=== PATIENT | female | born 1940 | race Caucasian/White ===

== ENCOUNTER → 2018-07-15 | Outpatient (CLI) | payer MEDICARE ==
[~2018-07-15] MED LIST: ACETAMINOPHEN 325 MG TAB As Ordered ONE; CLOPIDOGREL 75 MG TAB As Ordered ONE; HEPARIN 1,000 UNITS/ML 10ML VIAL (FOR RADIOLOGY& DIALYSIS ONLY) As Ordered ONE; ISOVUE-300 61% 50ML VIAL (Q9967) As Ordered ONE; LIDOCAINE 2% MDV 20 ML VIAL As Ordered ONE; MIDAZOLAM INJ 2 MG/2 ML VIAL (J2250) As Ordered ONE; PROTAMINE SULF INJ 50 MG/5 ML VIAL (J2720) As Ordered ONE; fentaNYL 100 MCG/2 ML INJECTION (J3010) As Ordered ONE
[2018-07-15 08:36] LABS: HEMATOCRIT 41.5 % (36.0-47.0); HEMOGLOBIN 13.7 g/dl (12.0-15.5); MEAN CORPUSCULAR HEMOGLOBIN 31.2 pg (27.0-33.0); MEAN CORPUSCULAR VOLUME 94.5 fl (80.0-96.0); PLATELET COUNT, AUTOMATED 352 10^3/uL (150-450); RED BLOOD COUNT 4.39 10^6/uL (4.00-5.40); WHITE BLOOD COUNT 11.3 10^3/uL (4.0-10.0)
[2018-07-15 08:57] LABS: BLOOD UREA NITROGEN 17 MG/DL (7-18); CALCIUM LEVEL 9.2 MG/DL (8.8-10.2); CARBON DIOXIDE LEVEL 28 MEQ/L (21-32); CHLORIDE LEVEL 105 MEQ/L (98-107); CREATININE FOR GFR 0.96 MG/DL (0.55-1.30); GLOMERULAR FILTRATION RATE > 60.0 (>39); GLUCOSE, FASTING 89 MG/DL (70-100); POTASSIUM SERUM 4.9 MEQ/L (3.5-5.1); SODIUM LEVEL 138 MEQ/L (136-145)
--- NOTE | 2018-08-03 11:26 | REPIR ---
DATE OF PROCEDURE: 07/15/2018 ATTENDING SURGEON: Manny Ash MD ASSISTANTS: Cha Couch and Mercedes Castañeda PREOPERATIVE DIAGNOSIS: Bilateral lower extremity claudication. POSTOPERATIVE DIAGNOSIS: Bilateral lower extremity claudication. PROCEDURES: Aortogram, iliofemoral angiogram, selective left common femoral artery catheter placement, left lower extremity angiogram, left popliteal artery angioplasty with 5 x 200 mm balloon, left superficial femoral artery angioplasty and stent with 6 x 120 mm Barbara drug-eluting stent times two postdilated with 6 x 200 balloon, left common femoral artery angioplasty with 6 x 200 balloon, Mynx closure of the right common femoral arteriotomy. 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 The patient has more significant symptoms in her left lower extremity and will undergo a left lower extremity angiogram with possible angioplasty, stent, and/or atherectomy. Risks, benefits, and alternative treatment options were discussed with the patient. ANESTHESIA: Local with sedation 1 mg of Versed, 50 mcg of fentanyl, and 10 mL of 2% lidocaine. SEDATION TIME: Was from 10:11 a.m. to 11:03 a.m. for a total of 52 minutes. FLUORO TIME: 6.7 minutes. CONTRAST: 15.5 mL of Isovue-300. HEPARIN: 6000 units. PROTAMINE: 50 mg. COMPLICATIONS: None. DRAINS: None. SPECIMENS: None. IMPLANTS: 6 x 120 Barbara drug-eluting stents in the superficial femoral and popliteal arteries times two. DESCRIPTION OF PROCEDURE: The patient was taken to the angiography suite, placed supine on the angiography table, and then prepped and draped in a standard surgical fashion. The right common femoral artery was cannulated with a micropuncture needle after anesthetizing the overlying skin with 2% lidocaine. A micropuncture wire was advanced through the micropuncture needle which was upsized to a micropuncture sheath. A Bentson wire was advanced through the micropuncture sheath which was upsized to a 5-Romanian sheath. An Omni Flush catheter was placed in the aorta, and an aortogram was performed. Catheter was pulled down to the level of bifurcation iliac arteries, and an iliofemoral angiogram was performed. Catheter was directed over the bifurcation iliac arteries, placed in the left common femoral artery, and a left lower extremity angiogram was performed. This showed severe diffuse disease along the course of the left common femoral, superficial femoral, and popliteal arteries with complete occlusion of the left distal superficial femoral and proximal popliteal artery. This area was recannulized, after which the left popliteal artery was angioplastied with a 5 x 200 balloon. The left popliteal artery proximally was then stented with a 6 x 120 mm Barbara drug-eluting stent, postdilated with a 6 x 200 balloon. The superficial femoral artery was angioplastied and stented with a 6 x 120 mm Barbara drug-eluting stent, and postdilated with a 6 x 20 balloon. The remainder of the superficial femoral and common femoral artery were angioplasty with a 6 x 200 balloon. A completion angiogram showed resolution of the stenosis with excellent flow into the tibial vessels distally. A Mynx closure device was used to close the arteriotomy in the right common femoral artery with an additional 10 minutes of adjunctive pressure applied for hemostasis. Dressings were then applied. The patient tolerated the procedure well. All instrument, sponge, and needle counts were correct at the end of the case. There were no complications. Dr. Ash was present for and directed the entire case. The patient was transferred to the holding area and subsequently discharged in stable condition.
== END | disposition home or self-care (01) ==
LOC: M IRPRO 08:03
PROVIDERS: ATTEND Surgery Vascular Surgery
DX: I70.213 Atherosclerosis of native arteries of extremities with intermittent claudication, bilateral legs (principal); I70.92 Chronic total occlusion of artery of the extremities
CPT/HCPCS: 37226; 80048; 85027; C1725; C1760; C1769; C1874; C1887; C1894; J2250; J2720; J3010; Q9967

== ENCOUNTER → 2018-08-12 | Outpatient (CLI) | payer MEDICARE ==
[~2018-08-12] MED LIST changes: -ACETAMINOPHEN 325 MG TAB As Ordered ONE; +CLOP75TA2; -CLOPIDOGREL 75 MG TAB As Ordered ONE; +LISI-542; -PROTAMINE SULF INJ 50 MG/5 ML VIAL (J2720) As Ordered ONE; +TYLE325T5 PO; +VENTAER
--- NOTE | 2018-09-07 08:28 | REPIR ---
DATE OF PROCEDURE: 08/12/2018 ATTENDING SURGEON: Dr. Manny Ash ASSISTANTS: Sariah Dempsey and Cha Couch. PREOPERATIVE DIAGNOSES: Right lower extremity claudication, left lower extremity claudication, status post left lower extremity angiogram with angioplasty and stent of the superficial femoral artery. POSTOPERATIVE DIAGNOSES: Right lower extremity claudication, left lower extremity claudication, status post left lower extremity angiogram with angioplasty and stent of the superficial femoral artery. PROCEDURE: Left common femoral arterial puncture, selective right common femoral artery catheter placement with right lower extremity angiogram, selective right superficial femoral artery catheter placement with right lower extremity angiogram, selective right popliteal artery catheter placement with right lower extremity angiogram, right superficial femoral artery angioplasty and stent with a 6 x 120 Barbara drug-eluting stent postdilated with 5 x 200 mm balloon, right popliteal artery angioplasty and stent with a 6 x 200 Barbara drug-eluting stent postdilated with a 5 x 200 mm balloon, right common femoral artery angioplasty with 5 x 200 mm balloon, Mynx closure of the left common femoral arteriotomy. INDICATIONS: The patient is a 78-year-old female with significant tobacco history and of bilateral lower extremity atherosclerotic occlusive disease, who has already undergone angioplasty and stenting of her left lower extremity with significant improvement and now will undergo a right lower extremity angiogram with possible angioplasty and stent. Risks, benefits and alternative treatment options were discussed with the patient. ANESTHESIA: Was local with sedation 1 mg of Versed, 50 mcg of fentanyl and 10 mL of 2% lidocaine. FLUOROSCOPY TIME: 4.2 minutes. HEPARIN: 6000 units. CONTRAST: 2000 mL. SEDATION TIME: Was from 9:24 a.m. to 10:26 a.m. for a total of 62 minutes. The sedation and cardiopulmonary monitoring were performed under my direct supervision. I was present for and directed the entire case. DESCRIPTION OF PROCEDURE: The patient was taken to the angiography suite, placed supine on the angiography room table and the left common femoral artery was cannulated with a micropuncture needle. The catheter was advanced up and over the bifurcation and placed in the right common femoral artery and a right lower extremity an angiogram was performed. The catheter was advanced through the stenosis in the right superficial femoral artery, placed in the distal right superficial femoral artery and an angiogram was performed. The catheter was advanced through the stenosis in the proximal popliteal artery, placed in the distal popliteal artery and a right lower extremity angiogram was performed. The right superficial femoral artery underwent angioplasty and stenting with a 6 x 120 mm Barbara drug-eluting stent. The right popliteal artery underwent angioplasty and stenting with a 6 x 120 mm Barbara drug-eluting stent. Both stents were postdilated with 5 x 200 mm balloon. The right common femoral artery was angioplastied with a s5 x 200 mm balloon. Completion angiography showed resolution of the stenosis with excellent flow through the right common femoral artery, superficial femoral artery and popliteal artery with good tibial vessel runoff into the foot. Mynx closure device was used close the arteriotomy in the left common femoral artery with an additional 10 minutes of adjunctive pressure applied for hemostasis. Dressings were then applied. The patient tolerated the procedure well. All instrument, sponge, needle counts were correct at the end the case. There were no complications. Dr. Ash was present for and directed the entire case. The patient was transferred to the holding area and subsequently discharged in stable condition. RADIOLOGIC SUPERVISION INTERPRETATION: The initial angiogram showed the stenosis in the right superficial femoral artery in multiple areas as well as the distal superficial femoral and proximal popliteal arteries. These areas underwent angioplasty and stenting with two stents and were postdilated with 5 x 200 balloon. There was stenosis also in the superficial femoral common femoral junction, which was angioplastied with a 5 x 200 balloon. A completion angiogram showed resolution of the stenosis with good flow into the tibial vessels. The Mynx closure device was used to close the arteriotomy in the left common femoral artery.
== END | disposition home or self-care (01) ==
LOC: EDBD → M IRPRO 07:54
PROVIDERS: ATTEND Surgery Vascular Surgery
DX: I70.211 Atherosclerosis of native arteries of extremities with intermittent claudication, right leg (principal)
CPT/HCPCS: 37226; 75710; 75774; 99152; 99153; C1725; C1760; C1769; C1874; C1887; C1894; J2250; J3010; Q9967

== ENCOUNTER 2018-08-13 19:28 | Emergency (ER) | payer MEDICARE ==
[~2018-08-13] VITALS: Ht 154.9 cm; Wt 40.9 kg
[2018-08-13] MEDS ORDERED: CLOP75TA2 (19:49)
[2018-08-13] MEDS ORDERED: LISI-542 (19:49)
[2018-08-13] MEDS ORDERED: VENTAER (19:49)
[2018-08-13] MEDS ORDERED: TYLE325T5 PO (19:51)
[2018-08-13] MEDS ORDERED: NS 1,000 ML IV SCH (20:28)
[2018-08-13] MEDS ORDERED: ONDANSETRON 4MG/2ML VIAL (J2405) IV ONE (20:30)
[2018-08-13 20:36] LABS: BASO % 0.2 % (0.0-1.0); HEMATOCRIT 39.6 % (36.0-47.0); HEMOGLOBIN 13.2 g/dl (12.0-15.5); LYMPH # 0.6 10^3/uL (1.5-4.5); LYMPH % 5.1 % (24.0-44.0); MEAN CORPUSCULAR HEMOGLOBIN 30.8 pg (27.0-33.0); MEAN CORPUSCULAR HGB CONC 33.3 g/dl (32.0-36.5); MEAN CORPUSCULAR VOLUME 92.5 fl (80.0-96.0); MONO # 0.4 10^3/uL (0.0-0.8); MONO % 3.2 % (0.0-5.0); NEUTROPHILS # 11.3 10^3/uL (1.8-7.7); NEUTROPHILS % 91.1 % (36.0-66.0); PLATELET COUNT, AUTOMATED 315 10^3/uL (150-450); RED BLOOD COUNT 4.28 10^6/uL (4.00-5.40); WHITE BLOOD COUNT 12.4 10^3/uL (4.0-10.0)
[2018-08-13 20:45] VITALS: BP 129/72
[2018-08-13 20:47] LABS: ACETAMINOPHEN LEVEL < 2.0 UG/ML (10.0-30.0); ALBUMIN 3.2 GM/DL (3.2-5.2); ALT/SGPT 14 U/L (12-78); BILIRUBIN,DIRECT 0.1 MG/DL (0.0-0.2); BILIRUBIN,TOTAL 0.5 MG/DL (0.2-1.0); BLOOD UREA NITROGEN 19 MG/DL (7-18); CALCIUM LEVEL 8.4 MG/DL (8.8-10.2); CARBON DIOXIDE LEVEL 24 MEQ/L (21-32); CHLORIDE LEVEL 103 MEQ/L (98-107); CREATININE FOR GFR 1.11 MG/DL (0.55-1.30); GLOMERULAR FILTRATION RATE 50.9 (>39); GLUCOSE, FASTING 126 MG/DL (70-100); LIPASE 107 U/L (73-393); POTASSIUM SERUM 4.2 MEQ/L (3.5-5.1); SODIUM LEVEL 135 MEQ/L (136-145); TOTAL PROTEIN 6.9 GM/DL (6.4-8.2)
[2018-08-13] MEDS ORDERED: ACETAMINOPHEN TAB 650MG DOSE (2X325MG) PO ONE (21:30)
== END 2018-08-13 21:45 | disposition home or self-care (01) ==
LOC: EDBD 19:28 → M ED 19:28
DX: R11.2 Nausea with vomiting, unspecified (principal); I10 Essential (primary) hypertension; Z79.01 Long term (current) use of anticoagulants; Z79.899 Other long term (current) drug therapy; Z88.8 Allergy status to other drugs, medicaments and biological substances; Z88.0 Allergy status to penicillin
CPT/HCPCS: 80048; 80076; 83690; 85025; 93041; 96365; 99284; G0480

== ENCOUNTER → 2018-09-28 | Outpatient (CLI) | payer MEDICARE ==
[~2018-09-28] MED LIST changes: -HEPARIN 1,000 UNITS/ML 10ML VIAL (FOR RADIOLOGY& DIALYSIS ONLY) As Ordered ONE; -ISOVUE-300 61% 50ML VIAL (Q9967) As Ordered ONE; -LIDOCAINE 2% MDV 20 ML VIAL As Ordered ONE; -MIDAZOLAM INJ 2 MG/2 ML VIAL (J2250) As Ordered ONE; -fentaNYL 100 MCG/2 ML INJECTION (J3010) As Ordered ONE
--- NOTE | 2018-09-28 16:04 | REP ---
BILATERAL LOWER EXTREMITY DUPLEX DOPPLER ARTERIAL ULTRASOUND: Real-time ultrasound evaluation and duplex Doppler interrogation of bilateral lower arterial systems is performed. There are bilateral superficial femoral artery stents. These are patent without significant stenosis. Scattered calcified and noncalcified plaquing is seen in the other chicken ranch vessels bilaterally. There are diffuse triphasic and biphasic wave forms seen in all vessels bilaterally. There is increased peak systolic velocity in the right popliteal arteries suggesting some degree of stenosis at that location. BECK right is 1.1 and left 1.0. RIGHT LEFT Common femoral artery 164 cm/s 118 cm/s Profunda 93.6 cm/s 86 cm/s Proximal SFA 77.2 cm/s 110 cm/s Mid SFA 45.9 cm/s 42.8 cm/s Distal SFA 50.5 cm/s 47.8 cm/s Popliteal 121 cm/s 59.3 cm/s Proximal KHUSHBOO 52.3 cm/s 58.3 cm/s Tibioperoneal trunk 61.1 cm/s 56.1 cm/s Proximal PRODUCT SUPPORT SALES REPRESENTATIVE 56.4 cm/s 59.9 cm/s Distal PRODUCT SUPPORT SALES REPRESENTATIVE 11.3 cm/s 48.7 cm/s Distal KHUSHBOO 9.8 cm/s 11.2 cm/s IMPRESSION: Bilateral superficial femoral artery stents without definite stenosis, patent flow is seen within both stents. There are findings suggesting stenosis of the right popliteal artery. Electronically Signed by Vinicio Saeed MD 09/29/2018 11:03 A
== END ==
LOC: M RAD 13:28
PROVIDERS: ATTEND Surgery Vascular Surgery
DX: I70.213 Atherosclerosis of native arteries of extremities with intermittent claudication, bilateral legs (principal)

== ENCOUNTER → 2018-12-23 | Outpatient (CLI) | payer MEDICARE ==
--- NOTE | 2018-12-23 14:25 | REP ---
Bilateral lower extremity arterial Doppler ultrasound: History: Atherosclerosis. Intermittent claudication. Findings: The ankle brachial index could not be calculated on the right as the patient was unable to calculate the blood pressure cuff on the this leg. Ankle brachial index on the left is 1.0. The right [place] superficial femoral artery is occluded. The distal superficial femoral artery is recannulated by collaterals with decreased velocities from the popliteal to the ankle. There is a stent in the distal superficial femoral artery appears occluded. On On the left there is a distal superficial femoral artery stent which appears patent. Moderate plaquing is seen in the distal posterior tibial and anterior tibial arteries on the left. There is reverse flow in the posterior tibial artery distally on the left. Velocity chart right lower extremity arteries: CF A 107 cm/S Profunda 113 Proximal SFA occluded Mid SFA stent occluded Distal SFA post stent 150 cm/S Popliteal 38 Proximal AT A 21 Tibioperoneal trunk 31 Proximal INFORMATION TECHNOLOGY OFFICER 34 Distal INFORMATION TECHNOLOGY OFFICER 7.5 Distal AT A 14 Velocity chart left lower extremity arteries: CF A 118 cm/S Profunda 79 Pre stent proximal SFA 81 Mid SFA 39 Poststent distal SFA 73 Popliteal 41 Proximal AT A 29 Tibioperoneal trunk 43 Proximal INFORMATION TECHNOLOGY OFFICER 22 Distal INFORMATION TECHNOLOGY OFFICER reversed 10 Distal AT A 44 Electronically Signed by Enoc Becker MD 12/23/2018 02:16 P
== END ==
LOC: M RAD 12:36
PROVIDERS: ATTEND Physician Assistant
DX: I70.213 Atherosclerosis of native arteries of extremities with intermittent claudication, bilateral legs (principal)

== ENCOUNTER → 2019-02-01 | Outpatient (CLI) | payer MEDICARE ==
[~2019-02-01] MED LIST changes: +BUPIVACAINE HCL 0.5% 10 ML VIAL As Ordered ONE; +DOXY100C37 PO; +GLYCCAP PO; +HEPARIN 1,000 UNITS/ML 10ML VIAL (FOR RADIOLOGY& DIALYSIS ONLY) As Ordered ONE; +ISOVUE-300 61% 50ML VIAL (Q9967) As Ordered ONE; +LIDOCAINE 2% MDV 20 ML VIAL As Ordered ONE; -LISI-542; +LISI-542 PO; +MIDAZOLAM INJ 2 MG/2 ML VIAL (J2250) As Ordered ONE; +PROTAMINE SULF INJ 50 MG/5 ML VIAL (J2720) As Ordered ONE; +diphenhydrAMINE INJ 50MG/ML VIAL (J1200) As Ordered ONE; +fentaNYL 100 MCG/2 ML INJECTION (J3010) As Ordered ONE
[2019-02-01 15:30] VITALS: BP 176/81
--- NOTE | 2019-02-08 06:44 | REPIR ---
DATE OF PROCEDURE: 02/01/2019 ATTENDING SURGEON: Dr. Manny Ash STUDENT TEACHER: Mercedes Castañeda and Cha Couch PREOPERATIVE DIAGNOSIS: Right lower extremity claudication status post right lower extremity angioplasty and stenting. POSTOPERATIVE DIAGNOSIS: Right lower extremity claudication, status post right lower extremity angioplasty and stenting. PROCEDURE: Left common femoral arterial cannulation, selective right common femoral artery catheter placement, right lower extremity angiogram, exposure of the left common femoral arteriotomy. INDICATIONS: The patient is a 78-year-old female with previous angioplasty and stenting of the right superficial femoral and popliteal arteries due to severe atherosclerotic arterial occlusive disease who now has recurrent claudication in the right lower extremity. The patient will undergo an angiogram with possible angioplasty stent atherectomy, thrombolysis and/or thrombectomy. ANESTHESIA: Local sedation with 1 mg of Versed, 50 mcg of fentanyl and 20 mL of 2% lidocaine mixed with 0.5% Marcaine. FLUORO TIME: 0.5 minutes. CONTRAST: 2 mL of Isovue-300. SEDATION TIME: From 11:45 a.m. to 12:07 p.m. for a total of 22 minutes. COMPLICATIONS: None. DRAINS: None. SPECIMENS: None. IMPLANTS: None. PROCEDURE: The patient was taken to the angiography suite, placed supine on the angiography room table and then prepped and draped in a standard surgical fashion. The left common femoral artery was then cannulated after which a catheter was brought up and over the bifurcation and placed in the right common femoral artery and a right lower extremity angiogram was performed showing complete occlusion of the superficial femoral and popliteal artery stents with reconstitution of the below-knee popliteal artery. The catheters and wires were removed. A MYNX closure device was used to close the arteriotomy in the left common femoral artery with an additional 10 minutes of adjunctive pressure applied for hemostasis. Dressings were then applied. The patient tolerated the procedure well. All instrument, sponge and needle counts were correct at the end the case. There were no complications. Dr. Ash was present for and directed the entire case. The patient was transferred to the holding area and subsequently discharged in stable condition.
== END ==
LOC: M IRPRO 09:24
PROVIDERS: ATTEND Surgery Vascular Surgery
DX: T82.858A Stenosis of other vascular prosthetic devices, implants and grafts, initial encounter (principal); I70.211 Atherosclerosis of native arteries of extremities with intermittent claudication, right leg; X58.XXXA Exposure to other specified factors, initial encounter; Y93.9 Activity, unspecified; Y92.9 Unspecified place or not applicable; Y99.9 Unspecified external cause status
CPT/HCPCS: 36246; 75710; 99152; 99153; C1760; C1769; C1887; C1894; G0269; J1200; J2250; J3010; Q9967

== ENCOUNTER 2019-02-04 17:49 | Emergency (ER) | payer MEDICARE ==
[~2019-02-04] VITALS: Ht 152.4 cm; Wt 39.5 kg
[~2019-02-04 17:49] MED LIST changes: -BUPIVACAINE HCL 0.5% 10 ML VIAL As Ordered ONE; -DOXY100C37 PO; -HEPARIN 1,000 UNITS/ML 10ML VIAL (FOR RADIOLOGY& DIALYSIS ONLY) As Ordered ONE; -ISOVUE-300 61% 50ML VIAL (Q9967) As Ordered ONE; -LIDOCAINE 2% MDV 20 ML VIAL As Ordered ONE; -MIDAZOLAM INJ 2 MG/2 ML VIAL (J2250) As Ordered ONE; -PROTAMINE SULF INJ 50 MG/5 ML VIAL (J2720) As Ordered ONE; -diphenhydrAMINE INJ 50MG/ML VIAL (J1200) As Ordered ONE; -fentaNYL 100 MCG/2 ML INJECTION (J3010) As Ordered ONE
[2019-02-04 18:42] VITALS: BP 160/82
[2019-02-04] MEDS ORDERED: DOXY100C37 PO (18:44)
== END 2019-02-04 18:57 | disposition home or self-care (01) ==
LOC: M ED 17:49
DX: L02.214 Cutaneous abscess of groin (principal); T83.518A Infection and inflammatory reaction due to other urinary catheter, initial encounter; X58.XXXA Exposure to other specified factors, initial encounter; Y92.89 Other specified places as the place of occurrence of the external cause; I12.9 Hypertensive chronic kidney disease with stage 1 through stage 4 chronic kidney disease, or unspecified chronic kidney disease; J44.9 Chronic obstructive pulmonary disease, unspecified; N18.3 Chronic kidney disease, stage 3 (moderate); K21.9 Gastro-esophageal reflux disease without esophagitis; E78.00 Pure hypercholesterolemia, unspecified; F41.9 Anxiety disorder, unspecified; Z79.899 Other long term (current) drug therapy; Z79.01 Long term (current) use of anticoagulants; Z88.0 Allergy status to penicillin; Z88.8 Allergy status to other drugs, medicaments and biological substances; F17.210 Nicotine dependence, cigarettes, uncomplicated

== ENCOUNTER → 2019-02-21 | Outpatient (CLI) | payer MEDICARE ==
[~2019-02-21] MED LIST changes: +DOXY100C37 PO
--- NOTE | 2019-02-22 08:29 | REP ---
Bilateral lower extremity venous mapping: Greater saphenous vein: origin: right 4.0 mm, left 3.6 mm. mid thigh: right 2.2 mm, left 2.6 mm. at the knee: right 2.1 mm, left 2.5 mm. below knee: right 2.3 mm, left 2.3 mm. midcalf: right 2.3 ml, left 2.3 mm. distal calf: right 1.9 ml, left 2.4 mm. Lesser saphenous vein: Distal thigh: Right 2.0 mm, left 2.7 mm. Posterior knee: Right 2.2 mm, left 2.3 mm. Proximal calf: Right 1.8 mm, left 2.1 mm. Midcalf: Right 1.9 mm, left 2.3 mm. Distal calf: Right 1.9 mm, left 2.6 mm. Bilateral lower extremity deep vein duplex ultrasound for thrombus: The deep veins demonstrate normal compression, normal Doppler color flow and normal Doppler waveforms with respiration and augmentation from the popliteal veins to the common femoral veins bilaterally . Impression: There is no deep vein thrombus in the right or left lower extremities . Electronically Signed by Vinicio Segura MD 02/22/2019 08:20 A
== END ==
LOC: M RAD 13:07
PROVIDERS: ATTEND Physician Assistant
DX: Z01.818 Encounter for other preprocedural examination (principal); I70.213 Atherosclerosis of native arteries of extremities with intermittent claudication, bilateral legs

== ENCOUNTER → 2020-01-23 | Outpatient (CLI) | payer MEDICARE, MEDICAID ==
--- NOTE | 2020-02-28 09:27 | REP ---
BILATERAL LOWER EXTREMITY ARTERIAL DOPPLER ULTRASOUND HISTORY: Claudication. FINDINGS: [id number] plaquing is seen throughout and bilaterally. Monophasic waveforms are noted extensively in the lower extremities bilaterally. A right superficial femoral artery stent is seen with occlusion. Distal to the stent, there is revascularization. The right posterior tibial artery is occluded. A stent is seen in the left proximal superficial femoral artery distally and is occluded. Two areas of revascularization are seen just distal to the stent. The left posterior tibial artery is occluded. Ankle brachial indices could not be accomplished due to patient tolerance. BILATERAL LOWER EXTREMITY ARTERIAL DOPPLER VELOCITY PSV RIGHT (cm/s) PSV LEFT (cm/s) SHOCK ABSORBER INSTALLER 142 141 Profunda 184 95 Proximal SFA Occluded Occluded Mid-SFA Occluded Occluded Distal SFA Post-stent 77 Post-stent 124 Popliteal 37 26 Proximal KHUSBHOO 31 33 Tibioperoneal trunk 36 31 Proximal TELEPHONE INTERVIEWER 34 12 Distal TELEPHONE INTERVIEWER Occluded Occluded Distal KHUSHBOO 11 26 MTDD
== END ==
LOC: M RAD 13:00
PROVIDERS: ATTEND Physician Assistant
DX: I70.213 Atherosclerosis of native arteries of extremities with intermittent claudication, bilateral legs (principal)

== ENCOUNTER → 2022-07-20 | Outpatient (CLI) | payer MEDICARE, MEDICAID ==
[~2022-07-20] MED LIST changes: +ACET-683 PO; +AMLO1TAB24 PO; +B-12100010 PO; -CLOP75TA2; +CLOP75TA2 PO; +DOXY-443 PO; -DOXY100C37 PO; +FLOV50AE PO; +IPRA0.00 INH; -LISI-542 PO; +LISI5TAB11 PO; -VENTAER; +VENTAER INH
== END ==
LOC: M PLARAD 15:22
PROVIDERS: ATTEND Student in an Organized Health Care Education/Training Program
DX: R91.8 Other nonspecific abnormal finding of lung field (principal)
CPT/HCPCS: 78815; A9552

== ENCOUNTER 2022-07-24 12:45 | Inpatient (IN) | payer MEDICARE, MEDICAID ==
[~2022-07-24] VITALS: Ht 154.9 cm; Wt 42.5 kg
[~2022-07-24 12:45] MED LIST changes: -ACET-683 PO; -AMLO1TAB24 PO; -B-12100010 PO; -FLOV50AE PO; -IPRA0.00 INH
[2022-07-24] MEDS ORDERED: IPRA0.00 INH (12:56)
[2022-07-24] MEDS ORDERED: FLOV50AE PO (12:56)
[2022-07-24] MEDS ORDERED: AMLO1TAB24 PO (12:56)
[2022-07-24] MEDS ORDERED: NS 1,000 ML IV ONE (13:10)
[2022-07-24] MEDS ORDERED: PANTOPRAZOLE 40MG VIAL IV ONE (13:10)
[2022-07-24 13:56] LABS: BASO % 0.4 % (0.0-1.0); HEMATOCRIT 48.4 % (36.0-47.0); HEMOGLOBIN 15.5 g/dl (12.0-15.5); LYMPH # 0.7 10^3/uL (1.5-5.0); LYMPH % 8.7 % (24.0-44.0); MEAN CORPUSCULAR HEMOGLOBIN 29.1 pg (27.0-33.0); MEAN CORPUSCULAR VOLUME 90.8 fl (80.0-96.0); MONO # 0.7 10^3/uL (0.0-0.8); MONO % 7.9 % (2.0-8.0); NEUTROPHILS % 82.6 % (36.0-66.0); PLATELET COUNT, AUTOMATED 273 10^3/uL (150-450); RED BLOOD COUNT 5.33 10^6/uL (4.00-5.40); WHITE BLOOD COUNT 8.4 10^3/uL (4.0-10.0)
[2022-07-24 14:17] LABS: INR 0.9; PROTHROMBIN TIME 12.3 SECONDS (12.5-14.5)
[2022-07-24 14:18] LABS: PARTIAL THROMBOPLASTIN TIME 26.6 SECONDS (24.8-34.2)
[2022-07-24 14:20] LABS: BILIRUBIN,TOTAL 0.2 MG/DL (0.3-1.2); CALCIUM LEVEL 8.7 MG/DL (8.3-10.6); CREATININE FOR GFR 1.16 MG/DL (0.55-1.30); GLOMERULAR FILTRATION RATE 47.9 (>32); POTASSIUM SERUM 3.9 MMOL/L (3.5-5.1); TOTAL PROTEIN 5.8 G/DL (5.7-8.2)
[2022-07-24 14:36] LABS: RSV AMPLIFICATION NEGATIVE (NEGATIVE)
[2022-07-24] MEDS ORDERED: SUCRALFATE SUSP 1GM/10ML UD PO ONE (16:00)
[2022-07-24] MEDS ORDERED: B-12100010 PO (16:57)
[2022-07-24] MEDS ORDERED: ACET-683 PO (16:57)
[2022-07-24] MEDS ORDERED: HOME MED LIST COMPLETE! XX SCH (17:00)
[2022-07-24 17:25] VITALS: BP 132/79
[2022-07-24 18:44] LABS: HEMATOCRIT 43.6 % (36.0-47.0)
[2022-07-24 21:00] VITALS: BP 114/66
[2022-07-24] MEDS ORDERED: NIRMATRELVIR/RITONAVIR (RENAL) CO-PACK (EUA) PO SCH (21:00)
[2022-07-24] MEDS: PANTOPRAZOLE 40MG VIAL IV SCH (21:43)
[2022-07-24] MEDS: SUCRALFATE SUSP 1GM/10ML UD PO SCH (21:43)
[2022-07-25 00:11] LABS: HEMATOCRIT 41.7 % (36.0-47.0); HEMOGLOBIN 13.1 g/dl (12.0-15.5)
[2022-07-25 06:00] VITALS: BP 134/77
[2022-07-25] MEDS ORDERED: IPRATROPIUM 0.5MG/ALBUTEROL 2.5MG INH SOL UD 3ML (DUONEB) INH PRN (07:30)
[2022-07-25] MEDS ORDERED: SUCR1ORA PO (07:32)
[2022-07-25] MEDS ORDERED: PROT1TAB2 PO (07:32)
[2022-07-25] MEDS ORDERED: FLUTICASONE HFA 44MCG 10.6GM INHALER (FLOVENT) INH SCH (08:00)
[2022-07-25] MEDS: ALBUTEROL 90 MCG/ACT 8GM HFA INHALER INH SCH ×3 (08:00→15:11)
[2022-07-25] MEDS: SUCRALFATE SUSP 1GM/10ML UD PO SCH ×2 (08:35→12:35)
[2022-07-25] MEDS: PANTOPRAZOLE 40MG VIAL IV SCH (08:35)
[2022-07-25 08:38] VITALS: BP 134/75
[2022-07-25] MEDS: ACETAMINOPHEN 500 MG TAB PO SCH ×2 (08:38→12:36)
[2022-07-25] MEDS ORDERED: CYANOCOBALAMIN 500 MCG TAB PO SCH (09:00)
[2022-07-25] MEDS ORDERED: amLODIPine 5 MG TAB PO SCH (09:00)
[2022-07-25] MEDS ORDERED: CLOPIDOGREL 75 MG TAB PO SCH (09:00)
[2022-07-25 12:21] LABS: HEMATOCRIT 42.4 % (36.0-47.0); HEMOGLOBIN 13.3 g/dl (12.0-15.5)
== END 2022-07-25 15:14 | disposition home or self-care (01) | DRG 377 ==
LOC: M ED 12:45 → M ED INP 14:53 → M MSPAV 17:15
PROVIDERS: ADMIT General Practice; ATTEND General Practice
DX: K92.1 Melena (principal); U07.1 COVID-19; J96.11 Chronic respiratory failure with hypoxia; J44.9 Chronic obstructive pulmonary disease, unspecified; F17.210 Nicotine dependence, cigarettes, uncomplicated; I73.9 Peripheral vascular disease, unspecified; Z79.899 Other long term (current) drug therapy; Z88.0 Allergy status to penicillin; Z88.8 Allergy status to other drugs, medicaments and biological substances